=== PATIENT | male | born 1970 | race Caucasian/White ===

== ENCOUNTER 2021-07-08 14:51 | Emergency (ER) | payer MEDICAID ==
[~2021-07-08] VITALS: Ht 177.8 cm; Wt 82.0 kg
[2021-07-08 15:28] VITALS: BP 160/111
[2021-07-08] MEDS ORDERED: SODIUM CHLORIDE 0.9% 1,000 ML IV ONE (16:00)
== END 2021-07-08 17:16 | disposition left against medical advice (07) ==
LOC: ER 14:51
DX: R55 Syncope and collapse (principal)
CPT/HCPCS: 82962; 93005; 99283; J7030